=== PATIENT | male | born 1960 | race Caucasian/White ===

== ENCOUNTER 2023-07-20 06:03 | Day surgery (SDC) | payer BC ==
[2023-07-15 13:17] VITALS: BMI 25.7
[2023-07-20] MEDS ORDERED: LIDOCAINE 1%/EPI 1:100000 (50 ML MULTI DOSE VIAL) ONE (07:11)
[2023-07-20] MEDS ORDERED: BUPIVACAINE HCL/PF 0.5% (5MG/ML) 10 ML VIAL ONE (07:11)
[2023-07-20] MEDS ORDERED: TETRACAINE 0.5% OPHTH SOLN 2 ML BOTTLE ONE (07:11)
[2023-07-20] MEDS ORDERED: ERYTHROMYCIN 0.5% OPHTHALMIC OINTMENT 3.5 GM TUBE ONE (07:11)
[2023-07-20] MEDS ORDERED: POVIDONE-IODINE 5% OPHTHALMIC PREP 30 ML SOLUTION ONE (07:11)
[2023-07-20] MEDS ORDERED: ceFAZolin SODIUM 1 GM VIAL ONE ×2 (07:11→07:32)
[2023-07-20] MEDS ORDERED: ONDANSETRON 4 MG/2 ML VIAL ONE (07:32)
[2023-07-20] MEDS ORDERED: DEXAMETHASONE SOD PHOSPHATE 4 MG/1 ML VIAL ONE (07:32)
[2023-07-20] MEDS ORDERED: PROPOFOL 40 ML ONE (07:32)
[2023-07-20] MEDS ORDERED: MIDAZOLAM HCL 2 MG/2 ML SINGLE DOSE VIAL ONE (07:32)
[2023-07-20] MEDS ORDERED: PROPOFOL 20 ML ONE ×2 (08:24→08:42)
[2023-07-20] MEDS ORDERED: oxyCODONE HCL 5 MG TABLET PO PRN (09:24)
[2023-07-20] MEDS ORDERED: ONDANSETRON 4 MG/2 ML VIAL IVPUSH PRN (09:24)
[2023-07-20] MEDS ORDERED: LACTATED RINGERS SOLUTION 1,000 ML IV SCH (09:30)
[2023-07-20 10:19] VITALS: RESP 19; TEMP 97.6
[2023-07-20 10:33] VITALS: BP 126/74; PULSE 58
== END 2023-07-20 10:30 | disposition home or self-care (01) ==
LOC: FASU 06:03
PROVIDERS: ATTEND Ophthalmology
PROC: 0HB2XZZ Excision of Right Ear Skin, External Approach (ICD-10-PCS; 2023-07-20)
PROC: 0JX10ZB Transfer Face Subcutaneous Tissue and Fascia with Skin and Subcutaneous Tissue, Open Approach (ICD-10-PCS; 2023-07-20)
PROC: 08QQXZZ Repair Right Lower Eyelid, External Approach (ICD-10-PCS; 2023-07-20)
PROC: 08QNXZZ Repair Right Upper Eyelid, External Approach (ICD-10-PCS; 2023-07-20)
PROC: 08R Eye, Replacement (ICD-10-PCS; principal; 2023-07-20 08:03)
DX: H02.89 Other specified disorders of eyelid (principal); L98.8 Other specified disorders of the skin and subcutaneous tissue
CPT/HCPCS: 94760